=== PATIENT | male | born 1945 | race Two or more races ===

== ENCOUNTER 2019-12-08 11:13 | Inpatient (IN) | payer OTHER ==
[~2019-12-08] VITALS: Ht 182.9 cm; Wt 107.0 kg
[2019-12-13] MEDS ORDERED: VERELAN240 MG PO (13:16)
[2019-12-13] MEDS ORDERED: VASOTEC20 M1 PO (13:16)
[2019-12-13] MEDS ORDERED: ZYLOPRIM300 MG PO (13:16)
[2019-12-13] MEDS ORDERED: MICROZIDE12.5 MG PO (13:17)
== END 2019-12-28 17:34 | disposition home or self-care (01) | DRG 330 ==
LOC: SURG 12-20 08:22 → O/R 12-20 08:22 → SURG 12-20 09:15 → SURH 12-20 12:21 → SURG 12-20 12:22
PROVIDERS: ADMIT Colon & Rectal Surgery
PROC: 07TB4ZZ Resection of Mesenteric Lymphatic, Percutaneous Endoscopic Approach (ICD-10-PCS; 2019-12-20)
PROC: 0DJD8ZZ Inspection of Lower Intestinal Tract, Via Natural or Artificial Opening Endoscopic (ICD-10-PCS; 2019-12-20)
PROC: 4A033R1 Measurement of Arterial Saturation, Peripheral, Percutaneous Approach (ICD-10-PCS; 2019-12-20)
PROC: 0DTN4ZZ Resection of Sigmoid Colon, Percutaneous Endoscopic Approach (ICD-10-PCS; principal; 2019-12-20 14:00)
PROC: BT4JZZZ Ultrasonography of Kidneys and Bladder (ICD-10-PCS; 2019-12-23)
DX: C19 Malignant neoplasm of rectosigmoid junction (principal); K92.1 Melena; N17.8 Other acute kidney failure; J95.89 Other postprocedural complications and disorders of respiratory system, not elsewhere classified; J98.11 Atelectasis; E87.0 Hyperosmolality and hypernatremia; E86.0 Dehydration; R59.0 Localized enlarged lymph nodes; K63.89 Other specified diseases of intestine; I11.9 Hypertensive heart disease without heart failure; E66.01 Morbid (severe) obesity due to excess calories; N40.0 Benign prostatic hyperplasia without lower urinary tract symptoms; E11.22 Type 2 diabetes mellitus with diabetic chronic kidney disease; I12.9 Hypertensive chronic kidney disease with stage 1 through stage 4 chronic kidney disease, or unspecified chronic kidney disease; N18.3 Chronic kidney disease, stage 3 (moderate); Z79.4 Long term (current) use of insulin

== ENCOUNTER → 2019-12-08 12:09 | Outpatient (CLI) | payer OTHER ==
[~2019-12-08 12:09] MED LIST: MICROZIDE12.5 MG PO; VASOTEC20 M1 PO; VERELAN240 MG PO; ZYLOPRIM300 MG PO
== END | disposition home or self-care (01) ==
LOC: LAB 12:09
DX: C19 Malignant neoplasm of rectosigmoid junction (principal); D12.8 Benign neoplasm of rectum; Z86.010 Personal history of colon polyps; K92.1 Melena

== ENCOUNTER 2019-12-14 07:34 | Outpatient (CLI) | payer OTHER | END 2019-12-14 08:20 | disposition home or self-care (01) | LOC: NUCLEAR 07:34 | DX: I82.503 Chronic embolism and thrombosis of unspecified deep veins of lower extremity, bilateral (principal) ==

== ENCOUNTER 2019-12-19 05:55 | Day surgery (SDC) | payer OTHER | END 2019-12-19 13:20 | disposition home or self-care (01) | LOC: AMB-ENDOS 05:55 | DX: C19 Malignant neoplasm of rectosigmoid junction (principal); K64.1 Second degree hemorrhoids ==

== ENCOUNTER 2019-12-30 18:45 | Emergency (ER) | payer OTHER ==
[~2019-12-30] VITALS: Ht 182.9 cm; Wt 103.4 kg
== END 2019-12-30 22:16 | disposition home or self-care (01) ==
LOC: ER 18:45
DX: R33.8 Other retention of urine (principal)

== ENCOUNTER 2021-09-27 06:54 | Day surgery (SDC) | payer OTHER | END 2021-09-27 13:10 | disposition home or self-care (01) | LOC: AMB-ENDOS 06:54 | PROVIDERS: ATTEND Colon & Rectal Surgery | DX: D12.3 Benign neoplasm of transverse colon (principal); D12.8 Benign neoplasm of rectum; K64.0 First degree hemorrhoids; Z20.822 Contact with and (suspected) exposure to COVID-19 ==

== ENCOUNTER 2023-06-26 07:46 | Outpatient (CLI) | payer OTHER | END 2023-06-26 07:53 | disposition home or self-care (01) | LOC: SONOGRAMA 07:46 | PROVIDERS: ATTEND Internal Medicine Hematology & Oncology | DX: D61.818 Other pancytopenia (principal) ==

== ENCOUNTER 2024-01-25 14:24 | Outpatient (CLI) | payer OTHER | END 2024-01-25 14:29 | disposition home or self-care (01) | LOC: SONOGRAMA 14:24 | PROVIDERS: ATTEND Personal Emergency Response Attendant | DX: R22.1 Localized swelling, mass and lump, neck (principal) ==